=== PATIENT | male | born 1955 | race Caucasian/White ===

== ENCOUNTER → 2020-02-12 10:55 | Outpatient (CLI) | payer MEDICARE, OTHER, SELFPAY ==
[2020-02-11 13:53] VITALS: BMI 30.5
[2020-02-12 12:17] LABS: Absolute Lymphocyte Count 1.82 X10^3/uL (0.83-4.51); Absolute Neutrophil Count 2.9 X10^3/uL (2.0-7.7); Basophil# 0.05 X10^3/uL; Basophil% 0.9 % (0-1); Eosinophil# 0.38 X10^3/uL; Eosinophils% 6.6 % (0-5); Hematocrit 48.2 % (40-54); Hemoglobin 15.5 g/dL (13.0-16.5); Lymphocyte # 1.82 X10^3/ul (4.0); Lymphocyte % 31.8 % (19-41); Mean Corp Hgb Conc 32.2 g/dL (32-36); Mean Platelet Vol. 9.3 fl (6.2-12.0); Monocyte# 0.57 X10^3/uL; NRBC Flagged by Analyzer 0 % (0-5); Neutrophil # 2.88 X10^3/uL (2.7-7.7); Neutrophil % 50.4 % (47-70); Platelet Count 359 K/mm3 (150-450); RBC Distribution Width CV 13.1 % (11.6-14.6); RBC Distribution Width SD 41.8 fl (35.1-43.9); Red Blood Count 5.54 M/mm3 (4.6-6.2); White Blood Count 5.7 K/mm3 (4.4-11.0)
[2020-02-12 12:49] LABS: ALB/GLOB Ratio 1.2 RATIO (0.9-2.4); AST(SGOT) 13 U/L (15-37); Alanine Aminotransfer ALT/SGPT 28 U/L (16-61); Alkaline Phosphatase 31 U/L (45-117); Anion Gap 6 (5-15); BUN 9 mg/dL (7-18); BUN/Creat Ratio 10.9 RATIO (10-20); Calcium,Total 9.1 mg/dL (8.5-10.1); Chloride 102 mmol/L (98-107); Cholesterol 251 mg/dL (200); Creatinine, Serum 0.82 mg/dL (0.70-1.30); EST Glomerular Filtration Rate 99 mL/min (>60); Est Glom Filt Rate - Afr Amer 120 mL/min (>60); Globulin 3.3 g/dL (2.2-4.2); Glucose 95 mg/dL (74-106); High Density Lipoprotein 56 mg/dL; PSA,Total - Annual Screen 5.52 ng/mL (0.00-4.00); Potassium 4.5 mmol/L (3.5-5.1); Protein, Total 7.3 g/dL (6.4-8.2); Sodium Level 137 mmol/L (136-145); Triglycerides 87 mg/dL; Very Low Density Lipoprotein 17 mg/dL (5-40)
== END ==
PROVIDERS: PCP Internal Medicine; Referring Provider Internal Medicine; Visit Provider Internal Medicine
DX: N40.1 Benign prostatic hyperplasia with lower urinary tract symptoms (principal); E78.5 Hyperlipidemia, unspecified; R19.8 Other specified symptoms and signs involving the digestive system and abdomen
CPT/HCPCS: 36415; 80053; 80061; 84153; 85025; G0103

== ENCOUNTER 2020-11-21 08:22 | Outpatient (RCR) | payer MEDICARE, OTHER, SELFPAY ==
--- NOTE | 2020-11-21 09:43 | HP.PTEVAL ---
Patient's Visit Information ALEXANDER MOLBEY is a 65 year old M referred to Physical Therapy by Dr. Marta Lee MD with a diagnosis of SCIATICA RIGHT SIDE. Date of Evaluation: 11/21/20 Physical Therapist: Lyle Hughes PT, Cert MDT, OCS - Visit Plan Frequency: 2x /Week Duration: 4 Weeks Plan: PT INTERVETIONS LUIS EX'S ,POSTURAL EX'S ,DLS ABD /BACK ,LE FLEXABLITY AND MODALTIES NEEDED,MANUAL THERAPY - Subjective This 65 y/o male presents to physical therapy with sciatica right side. Patient has had sciatic pain since September with pain radiating right back buttock lateral hip leg to calf. Pain described as ache and sharp pain. Seen DR tried steroids' and muscle relaxer didn't help. Pain in leg slowly improved . Initially, riding in golf cart jarring pain with soreness back and next day stabbing pain developed. Aggravating bending, lifting, sitting . Alleviating factors standing and walking ,moving around better. Denies paresthesia/tingling. Coughing/sneezing +. Bowel/sneezing .Pain increase with puting on sock. Pain affects ADL's and function and housework tasks. Patient pain affects ability and QOL. Patient has had no TX or trauma. Patient goal is decrease pain and golf. SOCAIL: . VOCATION: retired - Pain Right Lower Extremity Pain Intensity (Out of 10): 4 Pain Intensity Range: 10 - Objective POSTURE: mild forward posture. SYMMTRIES: align. PALPATION: [place]. NEURO: intact ,denies paresthesia/tingling, reflexes L3-4,L4-5,L5-S1. MMT: quads/hams 4/5,hip flexion 4-/5,ankle 5/5. LUMBAR ROM: flexion min loss pain ,extension min loss, side glides min loss\. FLEXABLITY: hamstrings min loss - Special Tests L/S Slump test left side: Negative L/S Slump test right side: Positive L/S Left Straight Leg Raise: Negative L/S Right Straight Leg Raise: Positive Lumbar Standing: Flexion - Mechanical Response: No effect Lumbar Standing: Flexion - Symptoms During Testing: Increases Lumbar Standing: Flexion - Symptoms After Testing: Worse Lumbar Standing: Extension - Mechanical Response: No effect Lumbar Standing: Extension - Symptoms During Testing: Decreases Lumbar Standing: Extension - Symptoms After Testing: Better Lumbar Standing: Right Side Glides - Mechanical Response: No effect Lumbar Standing: Right Side [place] - Symptoms During Testing: No effect Lumbar Standing: Right Side [place] - Symptoms After Testing: No effect Lumbar Standing: Left Side [place] - Mechanical Response: No effect Lumbar Standing: Left Side [place] - Symptoms During Testing: No effect Lumbar Standing: Left Side [place] - Symptoms After Testing: No effect Lumbar Lying: Flexion - Mechanical Response: No effect Lumbar Lying: Flexion - Symptoms During Testing: Increases Lumbar Lying: Flexion - Symptoms After Testing: Worse Lumbar Lying: Extension - Mechanical Response: No effect Lumbar Lying: Extension - Symptoms During Testing: Decreases Lumbar Lying: Extension - Symptoms After Testing: Better - Balance/Special Test Scores Oswestry Low Back Score: 20 - Goals Goal 1:: I with HEP to manage back pain Goal Time Frame: 4-6 Weeks Goal 2:: Improve posture/body mechanics 80% of the time Goal Time Frame: 4-6 Weeks Goal 3:: Patient demonstrate 75% improvement with decrease back pain and radicular symptoms Goal Time Frame: 4-6 Weeks Goal 4:: Patient to improve lumbar ROM for function of recovery to return to golf Goal Time Frame: 4-6 Weeks Goal 5:: Patient to improve back owestry score by 5 point To improve QOL Goal Time Frame: 4-6 Weeks - Rehabilitation Potential Physical Therapy Diagnosis: This 65 y/o male presents with derangement with possible disc worse with flexion better with extension and walking /on the move thus benefit from skilled PT Rehabilitation Potential: Good - Anticipated Interventions Patient/Client Instruction: Educate patient on: Condition, Plan of Care For the Purpose of:: To decrease pain, To increase ROM, To improve muscle performance and motor function, To improve ability to perform ADL's, To increase tolerance to activity/condition/position, To improve performance and independence with ADL's, To decrease level of supervision to perform tasks, To improve ability of physical actions for home/community/work/leisure, To decrease soft tissue restriction, To increase flexibility/ROM, To reduce risk of recurrence, To prevent re-injury, To improve ability to perform tasks related to life management Therapeutic Exercise to Include: Strength training, Endurance training, Coordination, Body mechanics, Postural training, Flexibilty training, Dynamic Lumbar Stabilization, Luis Exercises For the Purpose of:: To decrease pain, To increase ROM, To improve muscle performance and motor function, To improve ability to perform ADL's, To increase tolerance to activity/condition/position, To improve performance and independence with ADL's, To improve ability of physical actions for home/community/work/leisure, To improve health of tissue, To decrease soft tissue restriction, To reduce risk of recurrence, To improve health and function Manual Therapy Techniques to Include: Mobilization Comment: LUMBAR For the Purpose of:: To decrease pain, To increase ROM TENS: Yes IF ES: Yes Cryotherapy (ice pack, ice massage): Yes Thermo therapy (hot pack): Yes Ultrasound (thermal/non thermal): Yes For the Purpose of:: To decrease pain, To increase ROM, To improve nutrient delivery to tissue, To increase oxygenation perfusion, To improve health of tissue, To decrease soft tissue restriction Thank you for the opportunity to evaluate your patient. For Medicare and Medicare HMO plans, please review the plan of care and approve it. It will need to be FAXED BACK to us at [phone] for Medicare purposes. For Medicare only, by signing this I certify the plan of care. Please let me know if there are questions or concerns regarding this plan of care. Physician Signature: Date:
--- NOTE | 2020-12-22 17:00 | HP.PTDCNRP_ITS ---
ALEXANDER MOBLEY was seen in my office for initial evaluation on 11/21/20. The following Plan of Care was established for this patient: Initial Frequency: 2x /Week Initial Duration: 4 Weeks Patient/Client Instruction: Educate patient on: Condition, Plan of Care For the Purpose of:: To decrease pain, To increase ROM, To improve muscle performance and motor function, To improve ability to perform ADL's, To increase tolerance to activity/condition/position, To improve performance and independence with ADL's, To decrease level of supervision to perform tasks, To improve ability of physical actions for home/community/work/leisure, To decrease soft tissue restriction, To increase flexibility/ROM, To reduce risk of recurrence, To prevent re-injury, To improve ability to perform tasks related to life management Therapeutic Exercise to Include: Strength training, Endurance training, Coordination, Body mechanics, Postural training, Flexibilty training, Dynamic Lumbar Stabilization, Jaclyn Exercises For the Purpose of:: To decrease pain, To increase ROM, To improve muscle performance and motor function, To improve ability to perform ADL's, To increase tolerance to activity/condition/position, To improve performance and indepe ndence with ADL's, To improve ability of physical actions for home/community/work/leisure, To improve health of tissue, To decrease soft tissue restriction, To reduce risk of recurrence, To improve health and function Manual Therapy Techniques to Include: Mobilization Comment: LUMBAR For the Purpose of:: To decrease pain, To increase ROM TENS: Yes IF ES: Yes Cryotherapy (ice pack, ice massage): Yes Thermo therapy (hot pack): Yes Ultrasound (thermal/non thermal): Yes For the Purpose of:: To decrease pain, To increase ROM, To improve nutrient delivery to tissue, To increase oxygenation perfusion, To improve health of tissue, To decrease soft tissue restriction This patient was last seen in our office . Pertinent comments regarding their Physical therapy will appear below: Patient was seen for PT for Intial evaluation for HEP ,sciatica At this point I will be discontinuing this patient from physical therapy. I would be happy to see this patient again in the future if found appropriate by the physician. Thank you! Lyle Hughes, PT, Cert MDT, OCS Balance/Gait/Functional tests - Balance/Special Test Scores Oswestry Low Back Score: 20
== END 2020-11-21 19:00 | disposition home or self-care (01) ==
LOC: PT 08:22
PROVIDERS: PCP Internal Medicine; Referring Provider Internal Medicine; Visit Provider Internal Medicine
DX: M54.31 Sciatica, right side (principal)
CPT/HCPCS: 97110; 97162

== ENCOUNTER → 2021-02-12 10:00 | Outpatient (CLI) | payer MEDICARE, OTHER, SELFPAY ==
[2021-02-12 12:22] LABS: Absolute Lymphocyte Count 1.57 X10^3/uL (0.83-4.51); Absolute Neutrophil Count 3.2 X10^3/uL (2.0-7.7); Basophil# 0.05 X10^3/uL; Basophil% 0.9 % (0-1); Eosinophil# 0.22 X10^3/uL; Eosinophils% 3.9 % (0-5); Hemoglobin 15.7 g/dL (13.0-16.5); Lymphocyte # 1.57 X10^3/ul (0.83-4.51); Lymphocyte % 27.8 % (19-41); Mean Corp Hgb Conc 34.1 g/dL (32-36); Mean Corpuscular Hgb 29.3 pg (27.0-32.0); Mean Platelet Vol. 8.7 fl (6.2-12.0); Monocyte# 0.53 X10^3/uL; Monocyte% 9.4 % (0-10); NRBC Flagged by Analyzer 0 % (0-5); Neutrophil # 3.24 X10^3/uL (2.7-7.7); Neutrophil % 57.5 % (47-70); Platelet Count 378 K/mm3 (150-450); RBC Distribution Width CV 13.1 % (11.6-14.6); RBC Distribution Width SD 40.7 fl (35.1-43.9); Red Blood Count 5.35 M/mm3 (4.6-6.2); White Blood Count 5.6 K/mm3 (4.4-11.0)
[2021-02-12 12:31] LABS: Vitamin D,25 Hydroxy 30.6 ng/mL
[2021-02-12 12:38] LABS: ALB/GLOB Ratio 1.2 RATIO (0.9-2.4); AST(SGOT) 15 U/L (15-37); Alanine Aminotransfer ALT/SGPT 28 U/L (16-61); Albumin, Serum 3.8 g/dL (3.2-5.0); Alkaline Phosphatase 27 U/L (45-117); Anion Gap 4 (5-15); BUN 10 mg/dL (7-18); BUN/Creat Ratio 12.4 RATIO (10-20); Chloride 102 mmol/L (98-107); Cholesterol 266 mg/dL (200); Creatinine, Serum 0.81 mg/dL (0.70-1.30); EST Glomerular Filtration Rate 101 mL/min (>60); Est Glom Filt Rate - Afr Amer 122 mL/min (>60); Globulin 3.3 g/dL (2.2-4.2); Glucose 113 mg/dL (74-106); High Density Lipoprotein 59 mg/dL; PSA,Total- Diagnostic 6.33 ng/mL (0.0-4.0); Potassium 4.4 mmol/L (3.5-5.1); Protein, Total 7.1 g/dL (6.4-8.2); Sodium Level 134 mmol/L (136-145); Triglycerides 91 mg/dL; Very Low Density Lipoprotein 18 mg/dL (5-40)
== END ==
PROVIDERS: PCP Internal Medicine; Visit Provider Internal Medicine
DX: E78.5 Hyperlipidemia, unspecified (principal); E55.9 Vitamin D deficiency, unspecified; M19.90 Unspecified osteoarthritis, unspecified site; R97.20 Elevated prostate specific antigen [PSA]; Z85.828 Personal history of other malignant neoplasm of skin; I13.10 Hypertensive heart and chronic kidney disease without heart failure, with stage 1 through stage 4 chronic kidney disease, or unspecified chronic kidney disease; N18.9 Chronic kidney disease, unspecified
CPT/HCPCS: 36415; 80053; 80061; 82306; 84153; 85025

== ENCOUNTER → 2022-02-18 | Outpatient (CLI) | payer MEDICARE, OTHER, SELFPAY ==
[2022-02-18 11:08] LABS: Absolute Lymphocyte Count 1.75 X10^3/uL (0.83-4.51); Absolute Neutrophil Count 3.5 X10^3/uL (2.0-7.7); Basophil# 0.06 X10^3/uL; Eosinophil# 0.35 X10^3/uL; Eosinophils% 5.6 % (0-5); Hematocrit 48.2 % (40-54); Hemoglobin 15.9 g/dL (13.0-16.5); Lymphocyte # 1.75 X10^3/ul (0.83-4.51); Mean Corpuscular Hgb 29.2 pg (27.0-32.0); Mean Corpuscular Volume 88.6 fL (80-94); Mean Platelet Vol. 9.1 fl (6.2-12.0); Monocyte# 0.57 X10^3/uL; Monocyte% 9.1 % (0-10); NRBC Flagged by Analyzer 0 % (0-5); Neutrophil # 3.49 X10^3/uL (2.7-7.7); Platelet Count 358 K/mm3 (150-450); RBC Distribution Width CV 13.1 % (11.6-14.6); RBC Distribution Width SD 42.5 fl (35.1-43.9); Red Blood Count 5.44 M/mm3 (4.6-6.2); White Blood Count 6.2 K/mm3 (4.4-11.0)
[2022-02-18 11:48] LABS: ALB/GLOB Ratio 1.1 RATIO (0.9-2.4); AST(SGOT) 13 U/L (15-37); Alanine Aminotransfer ALT/SGPT 29 U/L (16-61); Albumin, Serum 3.7 g/dL (3.2-5.0); Alkaline Phosphatase 26 U/L (45-117); Anion Gap 3 (5-15); BUN 14 mg/dL (7-18); BUN/Creat Ratio 17.8 RATIO (10-20); Chloride 102 mmol/L (98-107); Cholesterol 253 mg/dL (200); Creatinine, Serum 0.78 mg/dL (0.70-1.30); EST Glomerular Filtration Rate 104 mL/min (>60); Est Glom Filt Rate - Afr Amer 126 mL/min (>60); Globulin 3.4 g/dL (2.2-4.2); Glucose 104 mg/dL (74-106); High Density Lipoprotein 57 mg/dL; PSA,Total - Annual Screen 6.28 ng/mL (0.00-4.00); Potassium 4.2 mmol/L (3.5-5.1); Protein, Total 7.1 g/dL (6.4-8.2); Sodium Level 135 mmol/L (136-145); Triglycerides 87 mg/dL; Very Low Density Lipoprotein 17 mg/dL (5-40)
== END | disposition home or self-care (01) ==
PROVIDERS: PCP Internal Medicine; Referring Provider Internal Medicine; Visit Provider Internal Medicine
DX: Z85.828 Personal history of other malignant neoplasm of skin (principal); R97.20 Elevated prostate specific antigen [PSA]; E55.9 Vitamin D deficiency, unspecified; E78.5 Hyperlipidemia, unspecified; Z12.5 Encounter for screening for malignant neoplasm of prostate
CPT/HCPCS: 36415; 80053; 80061; 84153; 85025; G0103

== ENCOUNTER → 2023-07-27 | Outpatient (CLI) | payer MEDICARE, OTHER, SELFPAY ==
[2023-07-27 11:52] LABS: Absolute Lymphocyte Count 1.62 X10^3/uL (0.83-4.51); Absolute Neutrophil Count 3.8 X10^3/uL (2.0-7.7); Basophil# 0.05 X10^3/uL; Basophil% 0.8 % (0-1); Eosinophil# 0.35 X10^3/uL; Eosinophils% 5.5 % (0-5); Hematocrit 47.6 % (40-54); Hemoglobin 15.7 g/dL (13.0-16.5); Lymphocyte # 1.62 X10^3/ul (0.83-4.51); Lymphocyte % 25.3 % (19-41); Mean Corpuscular Hgb 28.8 pg (27.0-32.0); Mean Corpuscular Volume 87.2 fL (80-94); Mean Platelet Vol. 9.2 fl (6.2-12.0); Monocyte# 0.59 X10^3/uL; Monocyte% 9.2 % (0-10); NRBC Flagged by Analyzer 0 % (0-5); Neutrophil # 3.76 X10^3/uL (2.7-7.7); Neutrophil % 58.6 % (47-70); Platelet Count 346 K/mm3 (150-450); RBC Distribution Width CV 12.9 % (11.6-14.6); RBC Distribution Width SD 40.5 fl (35.1-43.9); Red Blood Count 5.46 M/mm3 (4.6-6.2); White Blood Count 6.4 K/mm3 (4.4-11.0)
[2023-07-27 12:44] LABS: ALB/GLOB Ratio 1.1 RATIO (0.9-2.4); AST(SGOT) 20 U/L (15-37); Alanine Aminotransfer ALT/SGPT 40 U/L (16-61); Albumin, Serum 3.8 g/dL (3.2-5.0); Alkaline Phosphatase 30 U/L (45-117); Anion Gap 5 (5-15); BUN 11 mg/dL (7-18); BUN/Creat Ratio 14.8 RATIO (10-20); Chloride 103 mmol/L (98-107); Cholesterol 289 mg/dL (200); Creatinine, Serum 0.74 mg/dL (0.70-1.30); EST Glomerular Filtration Rate 110 mL/min (>60); Est Glom Filt Rate - Afr Amer 134 mL/min (>60); Globulin 3.5 g/dL (2.2-4.2); Glucose 100 mg/dL (74-106); High Density Lipoprotein 59 mg/dL; PSA,Total - Annual Screen 6.15 ng/mL (0.00-4.00); Potassium 4.2 mmol/L (3.5-5.1); Protein, Total 7.3 g/dL (6.4-8.2); Sodium Level 134 mmol/L (136-145); Triglycerides 81 mg/dL; Very Low Density Lipoprotein 16 mg/dL (5-40)
[2023-07-27 17:15] LABS: Vitamin D,25 Hydroxy 37.7 ng/mL
== END | disposition home or self-care (01) ==
LOC: LAB 10:51
PROVIDERS: PCP Internal Medicine; Referring Provider Internal Medicine; Visit Provider Internal Medicine
DX: R97.20 Elevated prostate specific antigen [PSA] (principal); E11.69 Type 2 diabetes mellitus with other specified complication; E55.9 Vitamin D deficiency, unspecified; M19.90 Unspecified osteoarthritis, unspecified site; M54.31 Sciatica, right side; Z12.5 Encounter for screening for malignant neoplasm of prostate; Z13.220 Encounter for screening for lipoid disorders; E78.5 Hyperlipidemia, unspecified
CPT/HCPCS: 36415; 80053; 80061; 82306; 84153; 85025; G0103

== ENCOUNTER → 2024-08-01 | Outpatient (CLI) | payer MEDICARE, OTHER, SELFPAY ==
[2024-08-01 12:26] LABS: Absolute Lymphocyte Count 1.79 X10^3/uL (0.83-4.51); Absolute Neutrophil Count 3.8 X10^3/uL (2.0-7.7); Basophil# 0.06 X10^3/uL; Basophil% 0.9 % (0-1); Eosinophil# 0.45 X10^3/uL; Eosinophils% 6.7 % (0-5); Hematocrit 46.7 % (40-54); Hemoglobin 16.2 g/dL (13.0-16.5); Lymphocyte # 1.79 X10^3/ul (0.83-4.51); Lymphocyte % 26.7 % (19-41); Mean Corp Hgb Conc 34.7 g/dL (32-36); Mean Corpuscular Hgb 29.4 pg (27.0-32.0); Mean Corpuscular Volume 84.8 fL (80-94); Mean Platelet Vol. 9.1 fl (6.2-12.0); NRBC Flagged by Analyzer 0 % (0-5); Neutrophil # 3.76 X10^3/uL (2.7-7.7); Neutrophil % 56.1 % (47-70); Platelet Count 360 K/mm3 (150-450); RBC Distribution Width CV 12.7 % (11.6-14.6); RBC Distribution Width SD 39.2 fl (35.1-43.9); Red Blood Count 5.51 M/mm3 (4.6-6.2); White Blood Count 6.7 K/mm3 (4.4-11.0)
[2024-08-01 13:27] LABS: ALB/GLOB Ratio 1.6 RATIO (0.9-2.4); AST(SGOT) 29 U/L (<=37); Alanine Aminotransfer ALT/SGPT 28 U/L (<=46); Albumin, Serum 4.3 g/dL (3.4-4.8); Alkaline Phosphatase 36 U/L (40-129); Anion Gap 13 (5-15); BUN 14 mg/dL (4-19); BUN/Creat Ratio 16.5 RATIO (10-20); Calcium,Total 9.6 mg/dL (7.6-11.0); Carbon Dioxide 23.2 mmol/L (21.0-32.0); Chloride 100 mmol/L (98-108); Cholesterol 265 mg/dL (<=200); Creatinine, Serum 0.82 mg/dL (0.70-1.20); EST Glomerular Filtration Rate 94 (>60); Globulin 2.7 g/dL (2.2-4.2); Glucose 102 mg/dL (70-99); High Density Lipoprotein 55 mg/dL; Low Density Lipoprotein Calc. 190 mg/dL; PSA,Total - Annual Screen 5.15 ng/mL (0.02-4.00); Potassium 4.5 mmol/L (3.3-5.1); Sodium Level 136 mmol/L (133-145); Total Bilirubin 0.89 mg/dL (0.00-1.30); Triglycerides 100 mg/dL; Very Low Density Lipoprotein 20 mg/dL (5-40); Vitamin D,25 Hydroxy 38.5 ng/mL (30-100); cholesterol:hdl ratio screen 4.78
== END | disposition home or self-care (01) ==
LOC: LAB 11:27
PROVIDERS: PCP Internal Medicine; Referring Provider Internal Medicine; Visit Provider Internal Medicine
DX: R97.20 Elevated prostate specific antigen [PSA] (principal); E55.9 Vitamin D deficiency, unspecified; M19.90 Unspecified osteoarthritis, unspecified site; Z12.5 Encounter for screening for malignant neoplasm of prostate; E78.5 Hyperlipidemia, unspecified; Z13.220 Encounter for screening for lipoid disorders
CPT/HCPCS: 36415; 80053; 80061; 82306; 84153; 85025; G0103

== ENCOUNTER 2024-08-28 10:00 | Day surgery (SDC) | payer MEDICARE, OTHER, SELFPAY ==
[2024-08-28] VITALS (9 sets, daily range): BP systolic 112–162; BP diastolic 71–83; PULSE 50–62; RESP 16; TEMP 36.1–36.8; O2SAT 92–99; BMI 31.8
[2024-08-28] MEDS: Lactated Ringers 1,000 ML 15 ML IV (10:20)
--- NOTE | 2024-08-28 10:44 | HP.PCM_ITS ---
History and Physical Date of Admission: 08/28/24 Intake Vital Signs 08/01/2509:26 08/16/2508:40 Height 5 ft 9 in 5 ft 9 in Weight: 217 lb 6 oz 219 lb BMI 32.1 32.3 BP 152/83 H 152/75 H Blood Pressure Location Lt brachial Rt brachial Position Sitting Sitting Respiration 16 17 Pulse 64 62 Pulse Source Monitor Monitor Temp 98.6 F 97.4 F L Temp Source Temporal Temporal Pulse Oximetry (%) 96 98 Oxygen Delivery Method room air room air Intake Visit Reasons: GERD/DYSPHAGIA Chief Complaint: GERD/dysphagia Is patient in pain?: No Allergies No Known Allergies Allergy (Verified 08/16/24 09:40) Medications ?Medication ?Instructions ?Recorded ?Confirmed ?Type ibuprofen 600 mg tablet 600 mg PO Q6H PRN 10/29/20 08/16/24 Hist ory acetaminophen 325 mg capsule 325 mg PO ONCE PRN 11/04/20 08/16/24 His tory (Tylenol) food supplemt, lactose-reduced ml PO 02/12/21 08/16/24 History (High-Protein Nutritional Shake oral liquid) Have you fallen in the past year?: No PFSH Medical History Chronic GERD Dysphagia Fistula History of skin cancer Arthritis Surgical History History of meniscal tear Family History Mother CancerFather CancerGrandfather CVA (cerebral vascular accident)Grandmother CVA (cerebral vascular accident) Social History Smoking Status: Never smoker alcohol intake: current alcohol intake frequency: a few times a week substance use type: does not use what type of physical activity do you participate in: none HPI HPI HPI: Patient is a 69-year-old male here for dysphagia. He reports he feels like food getting stuck several times a week. He has to drink water and then it passes but it is painful when it passes. He denies significant acid reflux but he does say he takes a rollator couple times a week. He has never had an EGD. ROS General General: Yes weight change; No appetite, fatigue, colon cancer, breast cancer or weakness HEENT HEENT: Yes difficulty swallowing and eye surgery; No eye injury, swollen glands or hoarseness Endo Endocrine: No thyroid disease, diabetes mellitus, thyroid cancer, Hair loss, heat intolerance or cold intolerance Skin Skin: No rash or changing moles Musc Musculoskeletal: Yes arthritis; No back problems, rheumatoid arthritis, gout or joint pain Cardio Cardiovascular: No murmur, pacemaker, heart disease, atrial fibrillation, high blood pressure, heart attack, heart stent, palpitations, shortness of breath with exertion or chest pain Psych Psychiatric: No depression, anxiety or hearing voices Resp Respiratory: No shortness of breath, No sleep apnea, No cough, No COPD, No asthma, No emphysema and No wheezing Gastro Gastrointestinal: No abdominal pain, No nausea or vomiting, No diarrhea, No constipation, No blood in stool, No acid reflux, No hemorrhoids, No ulcers, No gallbladder problem and No black,tarry stools Cory Hematologic: No blood thinners, No blood disorders, No bleeding, No anemia and No blood clots Neuro Neurologic: No system reviewed and no additional complaints, except as documented, No as per HPI, No abnormal gait, No abnormal hearing, No abnormal movements, No abnormal speech, No behavioral changes, No burning sensations, No confusion, No convulsions, No disequilibrium, No dizziness, No localized weakness, No frequent falls, No headache(s), No lack of coordination, No loss of vision, No memory loss, No numbness, No other visual disturbances, No radicular pain, No restless legs, No sensory deficit, No syncope, No tingling, No tremor(s), No weakness and No other Exam Const General: cooperative Orientation: alert and oriented x3 [facility] Head: normal to inspection Neck Neck: normal visual inspection and full ROM Chest Chest palpation & inspection: normal inspection of the chest Resp Effort & Inspection: normal respiratory effort Auscultation: clear to auscultation bilaterally Cardio Rate: regular rate Rhythm: regular rhythm GI Inspection: non-distended Palpation: soft and nontender Skin General: no rashes or lesions noted Neuro General: patient alert and patient oriented x3 Extrem General: full ROM Psych Appearance: grossly normal Mental Status: mental status grossly normal Assessment and Plan Assessment and Plan (1) Dysphagia: Status: Acute Plan: Patient is having dysphagia and I recommended EGD with possible dilation. I discussed this with him in detail. I discussed the increased risk of perforation or bleeding with dilation. I explained endoscopy in detail to the patient. I explained the risks including but not limited to stroke or heart attack with anesthesia, perforation of the GI tract, bleeding, infection. I explained that any of these could necessitate further emergency surgery. The patient understands and all questions were answered sufficiently. The patient wishes to proceed with procedure. I also asked him to start a PPI for 2 months. He would like to take [id number]. Darshan Barker MD Pager: [facility] [address] [place] [address], [address] [place] [address] Office: I have examined the patient and the H&P has been reviewed. There are no clinical changes since date of exam.
--- NOTE | 2024-08-28 10:44 | HP.PCM_ITS ---
History and Physical Date of Admission: 08/28/24 Intake Vital Signs 08/01/2509:26 08/16/2508:40 Height 5 ft 9 in 5 ft 9 in Weight: 217 lb 6 oz 219 lb BMI 32.1 32.3 BP 152/83 H 152/75 H Blood Pressure Location Lt brachial Rt brachial Position Sitting Sitting Respiration 16 17 Pulse 64 62 Pulse Source Monitor Monitor Temp 98.6 F 97.4 F L Temp Source Temporal Temporal Pulse Oximetry (%) 96 98 Oxygen Delivery Method room air room air Intake Visit Reasons: GERD/DYSPHAGIA Chief Complaint: GERD/dysphagia Is patient in pain?: No Allergies No Known Allergies Allergy (Verified 08/16/24 09:40) Medications ?Medication ?Instructions ?Recorded ?Confirmed ?Type ibuprofen 600 mg tablet 600 mg PO Q6H PRN 10/29/20 08/16/24 Hist ory acetaminophen 325 mg capsule 325 mg PO ONCE PRN 11/04/20 08/16/24 His tory (Tylenol) food supplemt, lactose-reduced ml PO 02/12/21 08/16/24 History (High-Protein Nutritional Shake oral liquid) Have you fallen in the past year?: No PFSH Medical History Chronic GERD Dysphagia Fistula History of skin cancer Arthritis Surgical History History of meniscal tear Family History Mother CancerFather CancerGrandfather CVA (cerebral vascular accident)Grandmother CVA (cerebral vascular accident) Social History Smoking Status: Never smoker alcohol intake: current alcohol intake frequency: a few times a week substance use type: does not use what type of physical activity do you participate in: none HPI HPI HPI: Patient is a 69-year-old male here for dysphagia. He reports he feels like food getting stuck several times a week. He has to drink water and then it passes but it is painful when it passes. He denies significant acid reflux but he does say he takes a rollator couple times a week. He has never had an EGD. ROS General General: Yes weight change; No appetite, fatigue, colon cancer, breast cancer or weakness HEENT HEENT: Yes difficulty swallowing and eye surgery; No eye injury, swollen glands or hoarseness Endo Endocrine: No thyroid disease, diabetes mellitus, thyroid cancer, Hair loss, heat intolerance or cold intolerance Skin Skin: No rash or changing moles Musc Musculoskeletal: Yes arthritis; No back problems, rheumatoid arthritis, gout or joint pain Cardio Cardiovascular: No murmur, pacemaker, heart disease, atrial fibrillation, high blood pressure, heart attack, heart stent, palpitations, shortness of breath with exertion or chest pain Psych Psychiatric: No depression, anxiety or hearing voices Resp Respiratory: No shortness of breath, No sleep apnea, No cough, No COPD, No asthma, No emphysema and No wheezing Gastro Gastrointestinal: No abdominal pain, No nausea or vomiting, No diarrhea, No constipation, No blood in stool, No acid reflux, No hemorrhoids, No ulcers, No gallbladder problem and No black,tarry stools Cory Hematologic: No blood thinners, No blood disorders, No bleeding, No anemia and No blood clots Neuro Neurologic: No system reviewed and no additional complaints, except as documented, No as per HPI, No abnormal gait, No abnormal hearing, No abnormal movements, No abnormal speech, No behavioral changes, No burning sensations, No confusion, No convulsions, No disequilibrium, No dizziness, No localized weakness, No frequent falls, No headache(s), No lack of coordination, No loss of vision, No memory loss, No numbness, No other visual disturbances, No radicular pain, No restless legs, No sensory deficit, No syncope, No tingling, No tremor(s), No weakness and No other Exam Const General: cooperative Orientation: alert and oriented x3 [facility] Head: normal to inspection Neck Neck: normal visual inspection and full ROM Chest Chest palpation & inspection: normal inspection of the chest Resp Effort & Inspection: normal respiratory effort Auscultation: clear to auscultation bilaterally Cardio Rate: regular rate Rhythm: regular rhythm GI Inspection: non-distended Palpation: soft and nontender Skin General: no rashes or lesions noted Neuro General: patient alert and patient oriented x3 Extrem General: full ROM Psych Appearance: grossly normal Mental Status: mental status grossly normal Assessment and Plan Assessment and Plan (1) Dysphagia: Status: Acute Plan: Patient is having dysphagia and I recommended EGD with possible dilation. I discussed this with him in detail. I discussed the increased risk of perforation or bleeding with dilation. I explained endoscopy in detail to the patient. I explained the risks including but not limited to stroke or heart attack with anesthesia, perforation of the GI tract, bleeding, infection. I explained that any of these could necessitate further emergency surgery. The patient understands and all questions were answered sufficiently. The patient wishes to proceed with procedure. I also asked him to start a PPI for 2 months. He would like to take [id number]. Darshan Barker MD Pager: [facility] [address] [place] [address], [address] [place] [address] Office: I have examined the patient and the H&P has been reviewed. There are no clinical changes since date of exam.
--- NOTE | 2024-08-28 11:00 | EGD_PTH ---
PATIENT: ALEXANDER MOBLEY LOC: EN U#:[id number] AGE/SX: 69/M ROOM: RE08/28/[address]: Dr. Darshan Barker MD : 1955 BED: DIS: 08/28/2024 SPEC #: [id number] RECD: 08/28/24 12:10 STATUS: CASSANDRA REKelly #: [id number] ANUPAMA: 08/28/24 11:[address]: Darshan Barker DEPT: SURGICAL PATHOLOGY RECD BY: Rui Rose ENTERED: 08/28/24 14:25 SP TYPE: EGD BIOPSY [facility] DR: Dr. Marta Lee MD Tissues: A - Esophagus, NOS Procedures: Surgery Specimen Level IV HEADER OPERATION: EGD and biopsy PRE-OP DIAGNOSIS: Dysphagia TISSUE SUBMITTED: A- Distal esophagus biopsy MICROSCOPIC DIAGNOSIS A. Distal esophagus, biopsy: - Squamous mucosa with no specific pathologic change. - Negative for eosinophils. - No columnar mucosa seen. MICROSCOPIC DESCRIPTION Slides are reviewed. GROSS DESCRIPTION A. Received in fixative is one container labeled with the patient's name and designated Distal esophagus biopsy. The specimen consists of three irregular fragments of light garcia soft tissue that in aggregate measure 0.2 to 0.5 cm. The specimen is totally submitted in one cassette. GIBRAN/ 08/28/2024 CPT:18264
--- NOTE | 2024-08-28 11:00 | EGD_PTH ---
PATIENT: ALEXANDER MOBLEY LOC: EN U#:[id number] AGE/SX: 69/M ROOM: RE08/28/[address]: Dr. Darshan Barker MD : 1955 BED: DIS: 08/28/2024 SPEC #: [id number] RECD: 08/28/24 12:10 STATUS: CASSANDRA REKelly #: [id number] ANUPAMA: 08/28/24 11:[address]: Darshan Barker DEPT: SURGICAL PATHOLOGY RECD BY: Rui Rose ENTERED: 08/28/24 14:25 SP TYPE: EGD BIOPSY [facility] DR: Dr. Marta Lee MD Tissues: A - Esophagus, NOS Procedures: Surgery Specimen Level IV HEADER OPERATION: EGD and biopsy PRE-OP DIAGNOSIS: Dysphagia TISSUE SUBMITTED: A- Distal esophagus biopsy MICROSCOPIC DIAGNOSIS A. Distal esophagus, biopsy: - Squamous mucosa with no specific pathologic change. - Negative for eosinophils. - No columnar mucosa seen. MICROSCOPIC DESCRIPTION Slides are reviewed. GROSS DESCRIPTION A. Received in fixative is one container labeled with the patient's name and designated Distal esophagus biopsy. The specimen consists of three irregular fragments of light garcia soft tissue that in aggregate measure 0.2 to 0.5 cm. The specimen is totally submitted in one cassette. GIBRAN/ 08/28/2024 CPT:19842
--- NOTE | 2024-08-28 11:02 | PCM.PRE.AN2 ---
ASA Classification* ASA Classification ASA Classification: 3 Assessment & Plan Anesthesia* Anesthesia Assessment Anesthesia Assessment: Discussed sedation and/or anesthesia options, risks, benefits, and alternatives with patient/parents/legal guardian/POA. Questions invited. The patient/parents/legal guardian/POA seems to understand and agrees to proceed with anesthesia plan. Reviewed the physical assessment, medical history, allergy history and patient home medications list prior to surgery/procedure/anesthetic and documented any changes. Performed airway and anesthesia risk assessments. Anesthesia Type Anesthesia Type: MAC History Source History Obtained from:: Patient and Chart Anesthesia Focused Assessment* Temperature: 97.4 F Pulse Rate: 57 Blood Pressure: 162/83 Respiratory Rate: 16 Pulse Ox: 99 Oxygen Delivery Method: Room Air Airway Assessment Mouth opens: 1 cm Mallampati Score: I Teeth Condition: Intact and Missing Neck Range of motion (ROM): Full ROM Labs Anesthesia Preop lab: CBC WBC 6.7 K/mm3 (4.4-11.0) 08/01/24 11:35 08/01/24 RBC 5.51 M/mm3 (4.6-6.2) 08/01/24 11:35 08/01/24 Hgb 16.2 g/dL (13.0-16.5) 08/01/24 11:35 08/01/24 Hct 46.7 % (40-54) 08/01/24 11:35 08/01/24 Plt Count 360 K/mm3 (150-450) 08/01/24 11:35 08/01/24 CHEMISTRY Potassium 4.5 mmol/L (3.3-5.1) 08/01/24 11:35 08/01/24 Sodium 136 mmol/L (133-145) 08/01/24 11:35 08/01/24 BUN 14 mg/dL (4-19) 08/01/24 11:35 08/01/24 Creatinine 0.82 mg/dL (0.70-1.20) 08/01/24 11:35 08/01/24 Glucose 102 mg/dL (70-99) H 08/01/24 11:35 08/01/24 COAG Pre-Assessment Diagnosis/Proposed Procedure Planned Operative Procedure(s): EGD Anesthesia History Anesthesia History - calender tender: Anesthesia History - calender tender Hx Hospitalization No 08/24/24 12:29 Any Problems With Anesthesia No 08/24/24 12:29 Cholinesterase deficiency No 08/24/24 12:29 You/Your Family Experience No 08/24/24 12:29 fever (hyperthermia) with Relationship Recent Exposure to Contagious No 08/28/24 10:13 Disease Does patient have nerve No 08/24/24 12:29 stimulator Patient instructed to have device shut off --Does patient have Pacemaker No 08/28/24 10:13 or ICD? When Was Last Pacemaker Check QUESTION #4 FULL TEXT: You/Your Family Experience fever (hyperthermia) with Anesthesia Last Oral Intake Last Oral intake: Last Oral Intake NPO since 21:00 08/28/24 10:13 Meds taken in AM with sips of No 08/28/24 10:13 water? Meds patient instructed to take am of surgery PONV PONV - calender tender: PONV - calender tender Female No 08/24/24 12:29 HX of Motion Sickness No 08/24/24 12:29 HX of N/V After Surgery No 08/24/24 12:29 Non-Smoker Yes 08/24/24 12:29 Duration of Surgery greater No 08/24/24 12:29 than 60 minutes Number of Risk Factors 1 08/24/24 12:29 PONV Score Low Risk 08/24/24 12:29 Height & Weight Height & Weight: Anesthesia: Height & Weight Height 5 ft 9 in 08/28/24 10:13 Weight: 98 kg 08/28/24 10:13 Body Mass Index (BMI) 31.8 08/28/24 10:13 Respiratory Assessment Respiratory Assessment - calender tender: Respiratory Tract Infection Hx - calender tender Hx Respiratory Tract Infection No 08/24/24 12:29 STOP Sleep Apnea STOP Sleep Apnea - calender tender: STOP Sleep Apnea - calender tender Hx Hypertension No 08/24/24 12:29 Hx Sleep Apnea No 08/24/24 12:29 CPAP BIPAP Do you snore loudly (louder Yes 08/24/24 12:29 than talking or can be heard Do you often feel tired/ No 08/24/24 12:29 fatigued/ sleepy during daytime? Has anyone observed you stop Yes 08/24/24 12:29 breathing during sleep? STOP Results Positive 08/24/24 12:29 QUESTION #5 FULL TEXT : Do you snore loudly (louder than talking or can be heard through closed doors)? 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 Specify any problems Hx of Preganancy in last 3 N/A 08/24/24 12:29 Months Nurse Filling Out Transfusion JZOLLINGE 08/24/24 12:29 & Questions: Date: 08/24/24 08/24/24 12:29 Time: 12:31 08/24/24 12:29 Patient unable to answer at this time (ie. confused, unrespo /Reproduction History /Reproductive History - calender tender: /Reproductive Hx- calender tender Hx Now No 08/24/24 12:29 Gestational Age (in weeks): EDC: Hx Hx Para Hx Section SAB No 08/24/24 12:29 Active Medications Active Medications: Current Medications Generic Name Dose Route Start Last Admin Trade Name Freq PRN Reason Stop Dose Admin Lactated Ringer's 1,000 mls @ 15 mls/hr 08/28/24 10:15 08/28/24 10:20 IV 15 mls/hr .Q48H NICKI Administration PFSH Medical History Wears glasses Alcohol use Non-smoker Chronic GERD Dysphagia Fistula History of skin cancer Arthritis Home Medications ?Medication ?Instructions ?Recorded ?Last Taken ?Type ibuprofen 600 mg tablet 600 mg PO Q6H PRN fever or pain 10/29/20 Unknown History acetaminophen 325 mg capsule 325 mg PO ONCE PRN fever or pain 11/04/20 Unknown History (Tylenol) food supplemt, lactose-reduced 30 ml PO .qd 02/12/21 Unknown History (High-Protein Nutritional Shake oral liquid) red yeast rice 300 mg-coQ10 30 1 cap PO .qd 08/24/24 Unknown History [id number] 120 mg-epa-fish capsule vit C 50 mg-E 15 unit-zinc cit 4.5 2 tab PO DAILY 08/24/24 Unknown History mg-lutein 2.5 mg-zeaxan chew tablet ([employer]) Allergy/AdvReac Type Severity Reaction Status Date / Time No Known Allergies Allergy Verified 08/28/24 10:10 Family History Mother Cancer Father Cancer Grandfather CVA (cerebral vascular accident) Grandmother CVA (cerebral vascular accident) Surgical History (Updated 08/24/24 @ 12:29 by Ara Jones) Hx of colonoscopy with polypectomy History of meniscal tear Social History Smoking Status: Never smoker alcohol intake: current alcohol intake frequency: a few times a week substance use type: does not use what type of physical activity do you participate in: none Review of Systems (Anesthesia) ROS Narrative System reviewed and no additional complaints, except as documented. Physical Exam Const alert and oriented x3 HEENT dentition normal Neck full ROM Resp normal respiratory effort and normal air movement Cardio regular rate Extremity full ROM
--- NOTE | 2024-08-28 11:02 | PCM.PRE.AN2 ---
ASA Classification* ASA Classification ASA Classification: 3 Assessment & Plan Anesthesia* Anesthesia Assessment Anesthesia Assessment: Discussed sedation and/or anesthesia options, risks, benefits, and alternatives with patient/parents/legal guardian/POA. Questions invited. The patient/parents/legal guardian/POA seems to understand and agrees to proceed with anesthesia plan. Reviewed the physical assessment, medical history, allergy history and patient home medications list prior to surgery/procedure/anesthetic and documented any changes. Performed airway and anesthesia risk assessments. Anesthesia Type Anesthesia Type: MAC History Source History Obtained from:: Patient and Chart Anesthesia Focused Assessment* Temperature: 97.4 F Pulse Rate: 57 Blood Pressure: 162/83 Respiratory Rate: 16 Pulse Ox: 99 Oxygen Delivery Method: Room Air Airway Assessment Mouth opens: 1 cm Mallampati Score: I Teeth Condition: Intact and Missing Neck Range of motion (ROM): Full ROM Labs Anesthesia Preop lab: CBC WBC 6.7 K/mm3 (4.4-11.0) 08/01/24 11:35 08/01/24 RBC 5.51 M/mm3 (4.6-6.2) 08/01/24 11:35 08/01/24 Hgb 16.2 g/dL (13.0-16.5) 08/01/24 11:35 08/01/24 Hct 46.7 % (40-54) 08/01/24 11:35 08/01/24 Plt Count 360 K/mm3 (150-450) 08/01/24 11:35 08/01/24 CHEMISTRY Potassium 4.5 mmol/L (3.3-5.1) 08/01/24 11:35 08/01/24 Sodium 136 mmol/L (133-145) 08/01/24 11:35 08/01/24 BUN 14 mg/dL (4-19) 08/01/24 11:35 08/01/24 Creatinine 0.82 mg/dL (0.70-1.20) 08/01/24 11:35 08/01/24 Glucose 102 mg/dL (70-99) H 08/01/24 11:35 08/01/24 COAG Pre-Assessment Diagnosis/Proposed Procedure Planned Operative Procedure(s): EGD Anesthesia History Anesthesia History - institutional research director: Anesthesia History - institutional research director Hx Hospitalization No 08/24/24 12:29 Any Problems With Anesthesia No 08/24/24 12:29 Cholinesterase deficiency No 08/24/24 12:29 You/Your Family Experience No 08/24/24 12:29 fever (hyperthermia) with Relationship Recent Exposure to Contagious No 08/28/24 10:13 Disease Does patient have nerve No 08/24/24 12:29 stimulator Patient instructed to have device shut off --Does patient have Pacemaker No 08/28/24 10:13 or ICD? When Was Last Pacemaker Check QUESTION #4 FULL TEXT: You/Your Family Experience fever (hyperthermia) with Anesthesia Last Oral Intake Last Oral intake: Last Oral Intake NPO since 21:00 08/28/24 10:13 Meds taken in AM with sips of No 08/28/24 10:13 water? Meds patient instructed to take am of surgery PONV PONV - institutional research director: PONV - institutional research director Female No 08/24/24 12:29 HX of Motion Sickness No 08/24/24 12:29 HX of N/V After Surgery No 08/24/24 12:29 Non-Smoker Yes 08/24/24 12:29 Duration of Surgery greater No 08/24/24 12:29 than 60 minutes Number of Risk Factors 1 08/24/24 12:29 PONV Score Low Risk 08/24/24 12:29 Height & Weight Height & Weight: Anesthesia: Height & Weight Height 5 ft 9 in 08/28/24 10:13 Weight: 98 kg 08/28/24 10:13 Body Mass Index (BMI) 31.8 08/28/24 10:13 Respiratory Assessment Respiratory Assessment - institutional research director: Respiratory Tract Infection Hx - institutional research director Hx Respiratory Tract Infection No 08/24/24 12:29 STOP Sleep Apnea STOP Sleep Apnea - institutional research director: STOP Sleep Apnea - institutional research director Hx Hypertension No 08/24/24 12:29 Hx Sleep Apnea No 08/24/24 12:29 CPAP BIPAP Do you snore loudly (louder Yes 08/24/24 12:29 than talking or can be heard Do you often feel tired/ No 08/24/24 12:29 fatigued/ sleepy during daytime? Has anyone observed you stop Yes 08/24/24 12:29 breathing during sleep? STOP Results Positive 08/24/24 12:29 QUESTION #5 FULL TEXT : Do you snore loudly (louder than talking or can be heard through closed doors)? 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 Specify any problems Hx of Preganancy in last 3 N/A 08/24/24 12:29 Months Nurse Filling Out Transfusion JZOLLINGE 08/24/24 12:29 & Questions: Date: 08/24/24 08/24/24 12:29 Time: 12:31 08/24/24 12:29 Patient unable to answer at this time (ie. confused, unrespo /Reproduction History /Reproductive History - institutional research director: /Reproductive Hx- institutional research director Hx Now No 08/24/24 12:29 Gestational Age (in weeks): EDC: Hx Hx Para Hx Section SAB No 08/24/24 12:29 Active Medications Active Medications: Current Medications Generic Name Dose Route Start Last Admin Trade Name Freq PRN Reason Stop Dose Admin Lactated Ringer's 1,000 mls @ 15 mls/hr 08/28/24 10:15 08/28/24 10:20 IV 15 mls/hr .Q48H NICKI Administration PFSH Medical History Wears glasses Alcohol use Non-smoker Chronic GERD Dysphagia Fistula History of skin cancer Arthritis Home Medications ?Medication ?Instructions ?Recorded ?Last Taken ?Type ibuprofen 600 mg tablet 600 mg PO Q6H PRN fever or pain 10/29/20 Unknown History acetaminophen 325 mg capsule 325 mg PO ONCE PRN fever or pain 11/04/20 Unknown History (Tylenol) food supplemt, lactose-reduced 30 ml PO .qd 02/12/21 Unknown History (High-Protein Nutritional Shake oral liquid) red yeast rice 300 mg-coQ10 30 1 cap PO .qd 08/24/24 Unknown History [id number] 120 mg-epa-fish capsule vit C 50 mg-E 15 unit-zinc cit 4.5 2 tab PO DAILY 08/24/24 Unknown History mg-lutein 2.5 mg-zeaxan chew tablet ([employer]) Allergy/AdvReac Type Severity Reaction Status Date / Time No Known Allergies Allergy Verified 08/28/24 10:10 Family History Mother Cancer Father Cancer Grandfather CVA (cerebral vascular accident) Grandmother CVA (cerebral vascular accident) Surgical History (Updated 08/24/24 @ 12:29 by Ara Jones) Hx of colonoscopy with polypectomy History of meniscal tear Social History Smoking Status: Never smoker alcohol intake: current alcohol intake frequency: a few times a week substance use type: does not use what type of physical activity do you participate in: none Review of Systems (Anesthesia) ROS Narrative System reviewed and no additional complaints, except as documented. Physical Exam Const alert and oriented x3 HEENT dentition normal Neck full ROM Resp normal respiratory effort and normal air movement Cardio regular rate Extremity full ROM
--- NOTE | 2024-08-28 11:16 | OP.CCLET_ITS ---
08/28/2024 Marta Lee [facility] [address] [place] [address] Re : Upper GI endoscopy procedure for Osman Melendez Dear Dr. Lee This procedure was performed on Wednesday, August 28, 2024. My impressions and recommendations are as follows: Impressions : - Normal esophagus. - Normal stomach. - Normal examined duodenum. - No specimens collected. Recommendations : - Discharge patient to home. - Resume previous diet. - Continue present medications. My findings are described in the full procedure note, which is enclosed. If I can be of further assistance, please feel free to contact me at Doctor phone number(s): , Work: . Sincerely, Darshan Barker MD 08/28/2024 11:16:27 AM This report has been signed electronically.
--- NOTE | 2024-08-28 11:16 | OP.EGD_ITS ---
Patient Name: Osman Melendez Procedure Date: 08/28/2024 10:52 AM Date of : 1955 Age: 69 Procedure: Upper GI endoscopy Indications: Dysphagia Providers: Darshan Barker MD Referring MD: Marta Lee Medicines: Propofol per Anesthesia Patient Profile: This is a 69 year old male. Refer to note in patient chart for documentation of history and physical. Complications: No immediate complications. Procedure: Pre-Anesthesia Assessment: - Prior to the procedure, a History and Physical was performed, and patient medications and allergies were reviewed. The patient's tolerance of previous anesthesia was also reviewed. The risks and benefits of the procedure and the sedation options and risks were discussed with the patient. All questions were answered, and informed consent was obtained. Prior Anticoagulants: The patient has taken no anticoagulant or antiplatelet agents. After reviewing the risks and benefits, the patient was deemed in satisfactory condition to undergo the procedure. After obtaining informed consent, the endoscope was passed under direct vision. Throughout the procedure, the patient's blood pressure, pulse, and oxygen saturations were monitored continuously. The gastroscope was introduced through the mouth, and advanced to the fourth part of duodenum. The upper GI endoscopy was accomplished without difficulty. The patient tolerated the procedure well. Scope In: 11:11:55 AM Scope Out: 11:14:43 AM Total Procedure Duration Time 0 hours 2 minutes 48 seconds Findings: The esophagus was normal. The stomach was normal. The examined duodenum was normal. Impression: - Normal esophagus. - Normal stomach. - Normal examined duodenum. - No specimens collected. Recommendation: - Discharge patient to home. - Resume previous diet. - Continue present medications. Procedure Code(s): --- Professional --- 79765, Esophagogastroduodenoscopy, flexible, transoral; diagnostic, including collection of specimen(s) by brushing or washing, when performed (separate procedure) Diagnosis Code(s): --- Professional --- R13.10, Dysphagia, unspecified CPT copyright 2021 [employer]. All rights reserved. The codes documented in this report are preliminary and upon flame cutting supervisor review may be revised to meet current compliance requirements. Darshan Barker MD 08/28/2024 11:16:27 AM This report has been signed electronically. Number of Addenda: 0 Note Initiated On: 08/28/2024 10:52 AM
--- NOTE | 2024-08-28 11:16 | OP.EGD_ITS ---
Patient Name: Osman Melendez Procedure Date: 08/28/2024 10:52 AM Date of : 1955 Age: 69 Procedure: Upper GI endoscopy Indications: Dysphagia Providers: Darshan Barker MD Referring MD: Marta Lee Medicines: Propofol per Anesthesia Patient Profile: This is a 69 year old male. Refer to note in patient chart for documentation of history and physical. Complications: No immediate complications. Procedure: Pre-Anesthesia Assessment: - Prior to the procedure, a History and Physical was performed, and patient medications and allergies were reviewed. The patient's tolerance of previous anesthesia was also reviewed. The risks and benefits of the procedure and the sedation options and risks were discussed with the patient. All questions were answered, and informed consent was obtained. Prior Anticoagulants: The patient has taken no anticoagulant or antiplatelet agents. After reviewing the risks and benefits, the patient was deemed in satisfactory condition to undergo the procedure. After obtaining informed consent, the endoscope was passed under direct vision. Throughout the procedure, the patient's blood pressure, pulse, and oxygen saturations were monitored continuously. The gastroscope was introduced through the mouth, and advanced to the fourth part of duodenum. The upper GI endoscopy was accomplished without difficulty. The patient tolerated the procedure well. Scope In: 11:11:55 AM Scope Out: 11:14:43 AM Total Procedure Duration Time 0 hours 2 minutes 48 seconds Findings: The esophagus was normal. The stomach was normal. The examined duodenum was normal. Impression: - Normal esophagus. - Normal stomach. - Normal examined duodenum. - No specimens collected. Recommendation: - Discharge patient to home. - Resume previous diet. - Continue present medications. Procedure Code(s): --- Professional --- 64271, Esophagogastroduodenoscopy, flexible, transoral; diagnostic, including collection of specimen(s) by brushing or washing, when performed (separate procedure) Diagnosis Code(s): --- Professional --- R13.10, Dysphagia, unspecified CPT copyright 2021 [employer]. All rights reserved. The codes documented in this report are preliminary and upon medical biller/coder review may be revised to meet current compliance requirements. Darshan Barker MD 08/28/2024 11:16:27 AM This report has been signed electronically. Number of Addenda: 0 Note Initiated On: 08/28/2024 10:52 AM
--- NOTE | 2024-08-28 11:16 | OP.CCLET_ITS ---
08/28/2024 Marta Lee [facility] [address] [place] [address] Re : Upper GI endoscopy procedure for Osman Melendez Dear Dr. Lee This procedure was performed on Wednesday, August 28, 2024. My impressions and recommendations are as follows: Impressions : - Normal esophagus. - Normal stomach. - Normal examined duodenum. - No specimens collected. Recommendations : - Discharge patient to home. - Resume previous diet. - Continue present medications. My findings are described in the full procedure note, which is enclosed. If I can be of further assistance, please feel free to contact me at Doctor phone number(s): , Work: . Sincerely, Darshan Barker MD 08/28/2024 11:16:27 AM This report has been signed electronically.
--- NOTE | 2024-08-28 11:25 | PCM.POST.ANE ---
Anesthesia: Postop Eval I Current Vital Signs Temperature: 98.3 F Pulse Rate: 62 Blood Pressure: 113/74 Respiratory Rate: 16 Pulse Ox: 92 Oxygen Delivery Method: Room Air Assessment Airway patent: Yes Spontaneous unlabored respirations: Yes Mental status: Awake and Calm nausea: No Vomiting: No Anesthesia Complication: No Fluid Hydration Crystalloid volume administer (ml): 300 Total IV fluid infused: 300 Progress Note Anesthesia document: Postop Eval 1 completed: Yes
--- NOTE | 2024-08-28 13:28 | PCM.POSTANE2 ---
Anesthesia Postop Eval I Sum Postop Eval Completion status Anesthesia document: Postop Eval 1 completed: Yes Anesthesia Postop Eval I Summary Anesthesia Postop Eval I Summary: Anesthesia Postop Eval I: Assessment Summary Airway patent Yes 08/28/24 11:26 [email or web address] Spontaneous unlabored Yes 08/28/24 11:26 [email or web address] respirations Mental status Awake,Calm 08/28/24 11:26 [email or web address] nausea No 08/28/24 11:26 [email or web address] Vomiting No 08/28/24 11:26 [email or web address] Anesthesia Postop Eval I: Fluid Summary Crystalloid volume administer 300 08/28/24 11:26 [email or web address] (ml) Colloids volume administered ( ml) Blood Product volume administered (ml) Total IV fluid infused 300 08/28/24 11:26 [email or web address] Anesthesia Postop Eval I: Summary Notes Anesthesia Complication No 08/28/24 11:26 [email or web address] Anesthesia Complication Comment: Post-operative progress note Anesthesia: Postop Eval II Evaluation Mental status: Awake and Calm Pain Level: 3 nausea: No Vomiting: No Complications Anesthesia Complication: No
== END 2024-08-28 12:05 | disposition home or self-care (01) ==
LOC: EN 10:00 → AC 10:02
PROVIDERS: PCP Internal Medicine; Referring Provider Internal Medicine; Visit Provider Surgery
PROC: 0DJ08ZZ Inspection of Upper Intestinal Tract, Via Natural or Artificial Opening Endoscopic (ICD-10-PCS; CPT 43235; principal; 2024-08-28 10:55)
DX: R13.10 Dysphagia, unspecified (principal); Z85.828 Personal history of other malignant neoplasm of skin
CPT/HCPCS: 43235; 88305; J2405